=== PATIENT | female | born 1950 | race Caucasian/White ===

== ENCOUNTER 2016-09-23 15:03 | Emergency (ER) | payer OTHER ==
[~2016-09-23] VITALS: Ht 168.9 cm; Wt 170.7 kg
[~2016-09-23 15:03] MED LIST: ANTIVERT25 MG PO; CEFTIN250 MG PO; CEFUROXIME250 MG PO; CEPHALEXIN500 MG PO; CHILDREN'S ASPI81 M1 PO; CHLORZOXAZONE500 MG PO; CIPRO250 MG PO; COZAAR100 MG PO; COZAAR25 MG PO; COZAAR50 MG PO; CRANBERRY PLUS1 EAC1 PO; CRANBERRY PO; CYANOCOBALAM1000 MCG PO; FISH OIL 1,0001 EAC7 PO; FLOMAX0.4 MG PO; IBUPROFEN600 MG PO; KEFLEX500 MG PO; MACROBID100 MG PO; MOTRIN600 MG PO; MULTIPLE VITAM1 EAC1 PO; NASACORT AQ16.5 GM BOTH NARES; NASACORT10.8 ML BOTH NARES; NOHOMEMEDS; PERCOCET 5/31 TABLET PO; PROMETHAZINE HC25 M1 PO; TRAMADOL HCL50 MG PO; TYLENOL EXTRA500 MG PO; VALIUM5 MG PO; VITAMIN D2000 UNIT PO; VITAMIN D33000 UNIT PO; VITAMIN PO; XANAX0.5 MG PO; ZOFRAN4 MG PO
[2016-09-23 17:46] LABS: ADD MIUA? YES; BILIRUBIN NEGATIVE; BLOOD SMALL; COLOR STRAW ((YELLOW)); GLUCOSE (STRIP) NEGATIVE; KETONES NEGATIVE; LEUKOCYTES NEGATIVE; NITRITE NEGATIVE; PROTEIN (STRIP) NEGATIVE; UROBILINOGEN 0.2 MG/DL (0.2-1.0)
[2016-09-23 17:54] LABS: BACTERIA RARE /HPF; EPITHELIAL CELLS RARE /HPF; HYALINE CASTS 0-5 /LPF; MUCUS TRACE /LPF; RED BLOOD CELLS 0-5 /HPF (0-5); UCUL ADDED? NO; WHITE BLOOD CELLS 0-5 /HPF (0-5)
[2016-09-23 18:23] LABS: HEMATOCRIT 41.7 % (36.0-46.0); MCH 34.4 PG (29.0-34.0); MCHC 34.3 G/DL (30.0-36.0); MCV 100.2 FL (83-99); PLATELET COUNT 186 K/uL (156-360); RBC DIS.WIDTH-CV 12.9 % (11.8-14.6); RBC DIS.WIDTH-SD 47.3 % (39-53); RED BLOOD COUNT 4.16 M/uL (3.80-5.20)
[2016-09-23 18:40] LABS: CHLORIDE 107 mEq/L (99-109); POTASSIUM 4.6 mEq/L (3.7-5.4); SODIUM 139 mEq/L (136-147)
[2016-09-23 18:42] LABS: GLUCOSE 103 mg/dL (70-99)
[2016-09-23 18:43] LABS: ANION GAP 10 MEQ/L (2-14)
[2016-09-23 18:44] LABS: TOTAL BILIRUBIN 0.6 mg/dL (0.0-1.0)
[2016-09-23 18:46] LABS: ALKALINE PHOSPHATASE 81 IU/L (3-129); GFR ESTIMATE (CALCULATED) > 59 mL/min/; TROP-I INTERPRETATION NEGATIVE; TROPONIN-I < 0.01 ng/mL (0.0-0.30)
[2016-09-23 18:47] LABS: UREA NITROGEN (BUN) 13 mg/dL (9-23)
[2016-09-23 18:49] LABS: LIPASE 5 U/L (1.0-51.0)
[2016-09-23 21:30] VITALS: BP 122/64
== END 2016-09-23 21:29 | disposition home or self-care (01) ==
LOC: EME 15:03
PROVIDERS: Emergency Medicine
DX: R10.9 Unspecified abdominal pain (principal); R07.9 Chest pain, unspecified; R19.7 Diarrhea, unspecified; M79.7 Fibromyalgia; K21.9 Gastro-esophageal reflux disease without esophagitis; Z87.891 Personal history of nicotine dependence
CPT/HCPCS: 71010; 74000; 80053; 81003; 83690; 84484; 85027; 93005; 99281; 99284

== ENCOUNTER 2017-10-08 16:16 | Emergency (ER) | payer OTHER ==
[~2017-10-08] VITALS: Ht 167.6 cm; Wt 175.9 kg
[2017-10-08 17:48] LABS: HEMATOCRIT 41.7 % (36.0-46.0); HEMOGLOBIN 14.5 G/DL (11.9-15.5); MCH 34.9 PG (29.0-34.0); MCHC 34.8 G/DL (30.0-36.0); MCV 100.5 FL (83-99); PLATELET COUNT 194 K/uL (156-360); RBC DIS.WIDTH-CV 13.1 % (11.8-14.6); RBC DIS.WIDTH-SD 48.4 % (39-53); RED BLOOD COUNT 4.15 M/uL (3.80-5.20); WHITE BLOOD COUNT 6.8 K/uL (4.1-10.2)
[2017-10-08 17:55] LABS: INTER. NORMALIZED RATIO 0.9
[2017-10-08 17:56] LABS: CHLORIDE 107 mEq/L (99-109); POTASSIUM 4.7 mEq/L (3.7-5.4); SODIUM 139 mEq/L (136-147)
[2017-10-08 17:58] LABS: GLUCOSE 110 mg/dL (70-99); PTT 23.7 SEC (25-37)
[2017-10-08 18:02] LABS: CREATININE 0.8 mg/dL (0.6-1.3); GFR ESTIMATE (CALCULATED) > 59 mL/min/
[2017-10-08 18:03] LABS: UREA NITROGEN (BUN) 22 mg/dL (9-23)
[2017-10-08] MEDS ORDERED: NAPROSYN500 MG PO (19:26)
[2017-10-08] MEDS ORDERED: ULTRAM50 MG PO (19:26)
[2017-10-08 20:04] VITALS: BP 115/83
== END 2017-10-08 20:06 | disposition home or self-care (01) ==
LOC: EME 16:16
PROVIDERS: Emergency Medicine
DX: M71.22 Synovial cyst of popliteal space [Baker], left knee (principal); S83.412A Sprain of medial collateral ligament of left knee, initial encounter; X50.1XXA Overexertion from prolonged static or awkward postures, initial encounter; R60.0 Localized edema; I10 Essential (primary) hypertension; Z79.82 Long term (current) use of aspirin
CPT/HCPCS: 80048; 85027; 85610; 85730; 93971; 99281; 99285